=== PATIENT | male | born 1945 | race African-American/Black ===

== ENCOUNTER 2016-05-10 06:08 | Day surgery (SDC) | payer MEDICARE ==
[2016-05-09 10:19] VITALS: BMI 28.8
[~2016-05-10 06:08] MED LIST: CHONDROITIN SU A/HYALUR SOD 1 KIT IO ONE; LIDOCAINE HCL 1% PRESERVATIVE FREE - 30ML VIAL IO ONE; TETRACAINE 0.5% OPHTH SOLN 2 ML BOTTLE TP ONE; TOBRA 0.3%/DEXAMETH 0.1% OPHTHALMIC SUSP 2.5 ML BTL TP ONE; TOBRAMYCIN/DEXAMETHASONE OPHTH. OINTMENT 1 TUBE TP ONE
[2016-05-10] MEDS ORDERED: CYCLOPENTOLATE HCL 1% OPHTH SOLN 2 ML BOTTLE ONE (06:20)
[2016-05-10] MEDS ORDERED: MOXIFLOXACIN HCL 0.5% OPHTHALMIC 3 ML BOTTLE ONE (06:20)
[2016-05-10] MEDS ORDERED: TROPICAMIDE 1% OPHTH SOLN 15 ML BOTTLE ONE (06:20)
[2016-05-10] MEDS ORDERED: PHENYLEPHRINE 2.5% OPHTH SOLN 15 ML BOTTLE ONE (06:20)
--- NOTE | 2016-05-10 06:29 | HP ---
History & Physical Update - History History: No Change - Physical Physical: No Change - Assessment Assessment: No Change - Plan Plan: No Change
[2016-05-10] MEDS: TROPICAMIDE 1% OPHTH SOLN 15 ML BOTTLE OP SCH ×3 (06:50→07:10)
[2016-05-10] MEDS: PHENYLEPHRINE 2.5% OPHTH SOLN 15 ML BOTTLE OP SCH ×3 (06:50→07:10)
[2016-05-10] MEDS: CYCLOPENTOLATE HCL 1% OPHTH SOLN 2 ML BOTTLE OP SCH ×3 (06:50→07:10)
[2016-05-10] MEDS: MOXIFLOXACIN HCL 0.5% OPHTHALMIC 3 ML BOTTLE OP SCH ×3 (06:50→07:10)
[2016-05-10] MEDS ORDERED: EPINEPHrine/PF 1 MG/1 ML (1:1,000) AMPULE ONE (07:21)
[2016-05-10] MEDS ORDERED: LIDOCAINE HCL/PF 1% SDV 5ML VIAL ONE (07:21)
[2016-05-10] MEDS ORDERED: TOBRA 0.3%/DEXAMETH 0.1% OPHTHALMIC SUSP 2.5 ML BTL ONE (07:21)
[2016-05-10] MEDS ORDERED: TRYPAN BLUE 0.5 ML DISP.SYRIN ONE (07:22)
[2016-05-10] MEDS ORDERED: TETRACAINE 0.5% OPHTH SOLN 2 ML BOTTLE ONE (07:22)
[2016-05-10] MEDS ORDERED: BSS (NA/CA/MG/K) BALANCED SALT SOLUTION OPHTH SOLN 15 ML BOTTLE ONE (07:22)
[2016-05-10] MEDS ORDERED: POVIDONE-IODINE 5% OPHTHALMIC PREP 30 ML SOLUTION ONE (07:22)
[2016-05-10] MEDS ORDERED: ePHEDrine SULFATE 50 MG/1 ML AMPULE ONE (07:33)
[2016-05-10] MEDS ORDERED: MIDAZOLAM HCL 2 MG/2 ML SINGLE DOSE VIAL ONE (07:34)
[2016-05-10] MEDS ORDERED: SUCCINYLCHOLINE CHLORIDE 200 MG/10 ML VIAL ONE (07:37)
[2016-05-10] MEDS ORDERED: TETRACAINE 0.5% OPHTH SOLN 2 ML BOTTLE TP ONE (07:57)
[2016-05-10] MEDS ORDERED: LIDOCAINE HCL 1% PRESERVATIVE FREE - 30ML VIAL IO ONE (08:07)
[2016-05-10] MEDS ORDERED: CHONDROITIN SU A/HYALUR SOD 1 KIT IO ONE ×2 (08:08)
[2016-05-10] MEDS ORDERED: ACETYLCHOLINE 1:100 INTRA-OCUL 20 MG/2 ML KIT IO ONE (08:43)
[2016-05-10] MEDS ORDERED: TOBRAMYCIN/DEXAMETHASONE OPHTH. OINTMENT 1 TUBE ONE (08:50)
[2016-05-10] MEDS ORDERED: TOBRAMYCIN/DEXAMETHASONE OPHTH. OINTMENT 1 TUBE TP ONE (08:57)
[2016-05-10 10:47] VITALS: TEMP 97.8
--- NOTE | 2016-05-10 10:58 | OP ---
DATE OF OPERATION: 05/10/2016 SURGEON: Kan Tang MD PREOPERATIVE DIAGNOSIS: Cataract, right eye. OPERATION: Phacoemulsification and intraocular lens implantation, right eye. POSTOPERATIVE DIAGNOSIS: Cataract, right eye. ANESTHESIA: Topical. COMPLICATIONS: Posterior capsular tear. BLOOD LOSS: None. SPECIMEN: None. BRIEF HISTORY: The patient is a 70-year-old man with a past medical history of diabetes who presented with decreased vision in the right eye down to 20/70 due to a 2+ nuclear sclerotic lens with cortical changes diffusely. The patient has also had diabetic retinopathy and has undergone laser for this in the past. After risks, benefits, and alternatives to cataract surgery were discussed with the patient, he consented to surgery for the right eye. The patient was brought to the operating room and prepped and draped in the usual sterile fashion. An eyelid speculum was inserted in the right eye. A paracentesis was made and the anterior chamber was inflated with nonpreserved lidocaine. This was followed by injection of Viscoat. A groove was made into temporal clear cornea which tunneled forward with a crescent blade. The anterior chamber was entered with a 2.75 keratome. The cystotome was used to make an incision in the center of the capsule and a continuous curvilinear capsulorrhexis was created. The lens was hydrodissected. It was very difficult to rotate the lens. However, after multiple attempts at hydrodissection the lens did rotate. Phacoemulsification was started and the nuclear portion of the lens was removed without incident. Upon attempting epinuclear removal, it was noted that there was a posterior capsular tear. Anterior vitrectomy was introduced into the eye and the epinuclear plate was removed with the anterior vitrector. However, a small area of cortical material remained under the capsule superiorly and unable to remove with either the anterior vitrector or irrigation and aspiration. The anterior chamber and sulcus area were reinflated with Provisc, and a 21.5- diopter MA60AC lens was folded and placed in the sulcus without incident. Miochol was injected into the eye, and the pupil was found to constrict round with no irregularity or no peaking. Three 10-0 nylon sutures were placed at the wound in order to keep the wound watertight, and the eye was at an appropriate pressure. The wound was checked, and the wound was found to be watertight. The paracentesis was also hydrodissected since it had to be enlarged in order to place the irrigation probe in the wound. The eye was found to be watertight, and the eye was at an appropriate pressure. The eyelid speculum was removed from the eye, and TobraDex ointment and a patch and shield were placed over the right eye. The patient was transferred to the recovery room in stable condition and will follow up tomorrow. David [id number] MTDD
[2016-05-10 11:35] VITALS: BP 132/70; PULSE 70
== END 2016-05-10 11:00 | disposition home or self-care (01) ==
LOC: JASU-SURG 06:08
PROVIDERS: ATTEND Ophthalmology
PROC: 08RJ3JZ Replacement of Right Lens with Synthetic Substitute, Percutaneous Approach (ICD-10-PCS; principal; 2016-05-10 08:00)
DX: H25.11 Age-related nuclear cataract, right eye (principal)
CPT/HCPCS: 36415; 82947; 84132